=== PATIENT | male | born 1955 | race Caucasian/White ===

== ENCOUNTER 2018-01-02 02:53 | Emergency (ER) | payer OTHER ==
[~2018-01-02 02:53] MED LIST changes: -DABI150C3 PO; -FURO-45 PO
--- NOTE | 2018-01-02 02:59 | ER Report ---
History and Physical Time Seen By MD: 02:56 HPI/ROS CHIEF COMPLAINT: AICD discharge HISTORY OF PRESENT ILLNESS: 62-year-old male brought in by EMS from home after his defibrillator discharged [facility]. Patient's been sick for 2 weeks with flu symptoms. Patient's been seen previously for V. tach storm where his defibrillator went off. His many as 10 times within 2 hours. Patient was started on an amiodarone drip and [facility] Patient notes no prodromal symptoms such as palpitations, nausea, chest pain, shortness of breath prior to his defibrillator discharge. Patient is asymptomatic post discharge. REVIEW OF SYSTEMS: Respiratory: As above Cardiovascular: No chest pain, no palpitations. Gastrointestinal: No vomiting, no abdominal pain. Musculoskeletal: No back pain. Allergies: Coded Allergies: No Known Drug Allergies (Unverified , 12/05/14) Home Meds Reported Medications Dabigatran Etexilate Mesylate (PRADAXA) 150 Mg Capsule, 150 MG PO BID, CAPSULE 01/02/18 Furosemide (FUROSEMIDE) 20 Mg Tablet, 1 TAB PO DAILY, TAB 01/02/18 Aspirin (ASPIRIN) 81 Mg Tab.chew, 81 MG PO QDAY, TAB.CHEW 01/30/16 Valganciclovir Hcl (VALCYTE) 450 Mg Tablet, 450 MG PO BID 12/06/14 Spironolactone (ALDACTONE) 50 Mg Tablet, 25 MG PO QDAY 12/06/14 Nitroglycerin (NITROSTAT) 0.4 Mg Subl, 0.4 MG SL Q5MIN 12/06/14 Lansoprazole (LANSOPRAZOLE) 30 Mg Capsule.dr, 30 MG PO QDAY 12/06/14 Folic Acid (FOLIC ACID) 1 Mg Tablet, 1 MG PO BID, TAB 12/06/14 Fluoxetine Hcl (PROZAC) 40 Mg Capsule, 60 MG PO QDAY, CAPSULE 12/06/14 Carvedilol (COREG) 6.25 Mg Tablet, 28.125 MG PO BID, #10 TAB TAKE ONE TABLET BY MOUTH TWICE A DAY 12/06/14 Atorvastatin Calcium (ATORVASTATIN CALCIUM) 40 Mg Tablet, 2 TAB PO QDAY, TAB TAKE ONE TABLET BY MOUTH ONCE A DAY AT BED TIME 12/06/14 Alprazolam (ALPRAZOLAM) 0.5 Mg Tab.rapdis, 0.5 MG PO PRN, TAB 12/06/14 Discontinued Reported Medications Dofetilide (TIKOSYN) 500 Mcg Capsule, 500 MCG PO, CAPSULE 01/30/16 Furosemide (FUROSEMIDE) 40 Mg Tablet, 1 TAB PO DAILY, TAB 01/30/16 Warfarin Sodium (WARFARIN SODIUM) 5 Mg Tablet, 10 MG PO QDAY 12/06/14 Losartan Potassium (LOSARTAN POTASSIUM) 50 Mg Tablet, 25 MG PO QDAY 12/06/14 Digoxin (DIGOXIN) 0.25 Mg/5 Ml Solution, 0.25 MG PO DAILY 12/06/14 Reviewed Nurses Notes: Yes Old Medical Records Reviewed: Yes Hx Smoking: No Smoking Status: Former Smoker Hx Substance Use Disorder: No Constitutional Vital Sign - Last 24 Hours 01/02/18 01/02/18 01/02/18 01/02/18 02:55 03:00 03:07 03:15 Temp 98.0 Pulse 60 55 62 Resp 21 14 16 B/P (MAP) 123/68 128/74 (92) Pulse Ox 92 93 O2 Flow Rate 2.0 01/02/18 01/02/18 03:30 04:00 Pulse 61 60 Resp 21 14 B/P (MAP) 101/68 (79) 109/64 (79) Pulse Ox 93 90 O2 Delivery Room Air Physical Exam General Appearance: The patient is alert, has no immediate need for airway protection and no current signs of toxicity.. Vital signs stable, afebrile, pulse ox normal Eyes: Pupils equal and round no injection. Respiratory: Chest is non tender, lungs are clear to auscultation. No chest wall tenderness Cardiac: regular rate and rhythm, no murmur Gastrointestinal: Abdomen is soft and non tender, no masses, bowel sounds normal. Musculoskeletal: Neck: Neck is supple and non tender. Extremities have full range of motion and are non tender. Skin: No rashes or lesions. DIFFERENTIAL DIAGNOSIS: After history and physical exam differential diagnosis was considered for chest pain including but not limited to myocardial ischemia, pericarditis pulmonary embolus, chest wall pain, pleural inflammation and pulmonary infectious causes. Medical Decision Making Data Points Result Diagram: 01/02/1824401/02/18244 Laboratory Hematology Test 01/02/18 02:45 Red Blood Count 4.89 M/uL (4.00-5.60) Mean Corpuscular Volume 90.8 fL (80.0-96.0) Mean Corpuscular Hemoglobin 32.0 pg (26.0-33.0) Mean Corpuscular Hemoglobin Concent 35.3 g/dL (32.0-36.0) Red Cell Distribution Width 13.8 % (11.5-14.5) Mean Platelet Volume 6.9 fL (7.2-11.1) Neutrophils (%) (Auto) 59.0 % (39.4-72.5) Lymphocytes (%) (Auto) 31.6 % (17.6-49.6) Monocytes (%) (Auto) 4.7 % (4.1-12.4) Eosinophils (%) (Auto) 3.4 % (0.4-6.7) Basophils (%) (Auto) 1.3 % (0.3-1.4) Nucleated RBC Relative Count (auto) 0.0 /100WBC Neutrophils # (Auto) 5.6 K/uL (2.0-7.4) Lymphocytes # (Auto) 3.0 K/uL (1.3-3.6) Monocytes # (Auto) 0.4 K/uL (0.3-1.0) Eosinophils # (Auto) 0.3 K/uL (0.0-0.5) Basophils # (Auto) 0.1 K/uL (0.0-0.1) Nucleated RBC Absolute Count (auto) 0.00 K/uL Sodium Level 138 mmol/L (137-145) Potassium Level 3.8 mmol/L (3.5-5.0) Chloride Level 101 mmol/L (98-107) Carbon Dioxide Level 27 mmol/L (22-30) Blood Urea Nitrogen 20 mg/dl (9-21) Creatinine 1.20 mg/dl (0.66-1.25) Glomerular Filtration Rate Calc > 60.0 Random Glucose 113 mg/dl (75-110) Calcium Level 9.1 mg/dl (8.4-10.2) Magnesium Level 1.8 mg/dl (1.7-2.2) Total Bilirubin 0.9 mg/dl (0.2-1.3) Aspartate Amino Transf (AST/SGOT) 27 U/L (0-35) Alanine Aminotransferase (ALT/SGPT) 35 U/L (0-56) Alkaline Phosphatase 93 U/L (0-126) Troponin I < 0.012 ng/ml Total Protein 7.8 gm/dl (6.3-8.2) Albumin 4.0 g/dl (3.5-5.0) Digoxin Level < 0.4 ng/ml Digoxin Last Dose Date unk Digoxin Last Dose Time unk Chemistry Test 01/02/18 02:45 White Blood Count 9.5 k/uL (4.5-11.0) Red Blood Count 4.89 M/uL (4.00-5.60) Hemoglobin 15.7 g/dL (14.0-18.0) Hematocrit 44.4 % (42.0-52.0) Mean Corpuscular Volume 90.8 fL (80.0-96.0) Mean Corpuscular Hemoglobin 32.0 pg (26.0-33.0) Mean Corpuscular Hemoglobin Concent 35.3 g/dL (32.0-36.0) Red Cell Distribution Width 13.8 % (11.5-14.5) Platelet Count 275 K/uL (150-450) Mean Platelet Volume 6.9 fL (7.2-11.1) Neutrophils (%) (Auto) 59.0 % (39.4-72.5) Lymphocytes (%) (Auto) 31.6 % (17.6-49.6) Monocytes (%) (Auto) 4.7 % (4.1-12.4) Eosinophils (%) (Auto) 3.4 % (0.4-6.7) Basophils (%) (Auto) 1.3 % (0.3-1.4) Nucleated RBC Relative Count (auto) 0.0 /100WBC Neutrophils # (Auto) 5.6 K/uL (2.0-7.4) Lymphocytes # (Auto) 3.0 K/uL (1.3-3.6) Monocytes # (Auto) 0.4 K/uL (0.3-1.0) Eosinophils # (Auto) 0.3 K/uL (0.0-0.5) Basophils # (Auto) 0.1 K/uL (0.0-0.1) Nucleated RBC Absolute Count (auto) 0.00 K/uL Glomerular Filtration Rate Calc > 60.0 Calcium Level 9.1 mg/dl (8.4-10.2) Magnesium Level 1.8 mg/dl (1.7-2.2) Total Bilirubin 0.9 mg/dl (0.2-1.3) Aspartate Amino Transf (AST/SGOT) 27 U/L (0-35) Alanine Aminotransferase (ALT/SGPT) 35 U/L (0-56) Alkaline Phosphatase 93 U/L (0-126) Troponin I < 0.012 ng/ml Total Protein 7.8 gm/dl (6.3-8.2) Albumin 4.0 g/dl (3.5-5.0) Digoxin Level < 0.4 ng/ml Digoxin Last Dose Date unk Digoxin Last Dose Time unk Toxicology Test 01/02/18 02:45 Digoxin Level < 0.4 ng/ml Digoxin Last Dose Date unk Digoxin Last Dose Time unk EKG/Imaging EKG Interpretation 12 lead EK Rhythm: AV sequential pacemaker [place]: QRS: ST segments:, Comparison to previous EKG 11/25/16, no significant change. Pacemaker rhythm previously Imaging X-ray: Single view portable chest x-ray was obtained. I viewed the images myself on the PACS system. My interpretation of the images is: Atelectasis in the left lower base with elevated hemidiaphragm compared to previous film . The radiologist interpretation had no clinically significant variation from this interpretation. ED Course/Re-evaluation Clinical Indication for ER IV: IV Access ED Course Patient was admitted to an examination room. H&P was done. The differential diagnoses was considered. Patient with flu symptoms for 2 weeks. He's been in bed resting. Tonight he is brought in by EMS after his implanted defibrillator discharged. Patient notes no prodromal symptoms. He is noted fatigue and tiredness. He's not had no fever. He's had no productive cough. He's had no leg swelling. He is chronically on Pradaxa. Patient's EKG is a paced rhythm. Diagnostic laboratories show a normal white blood cell count without left shift. His [place]. Lites are unremarkable and normal troponin is noted. Patient's advised to follow-up with his primary care doctor if unimproved in 3- 5 days. I see no indication at this time for admission or further diagnostic evaluation. Decision to Disposition Date: Jan 02, 2018 Decision to Disposition Time: 03:46 Depart Departure Latest Vital Signs Vital Signs Date Time Temp Pulse Resp B/P (MAP) Pulse Ox O2 Delivery O2 Flow Rate FiO2 01/02/18 04:00 60 14 109/64 (79) 90 Room Air 01/02/18 03:07 2.0 01/02/18 02:55 98.0 Impression: Primary Impression: AICD discharge Additional Impressions: Flu-like symptoms Dry cough Condition: Improved Disposition: HOME OR SELF-CARE Patient Instructions: Implantable Cardioverter Defibrillator (GEN), Upper Respiratory Infection (ED) Additional Instructions: Follow-up with your primary care if unimproved in one week Return to the ER for any worsening Problem Qualifiers RALPH MILLAN DO Jan 02, 2018 02:59
[2018-01-02] MEDS ORDERED: DABI150C3 PO (03:14)
[2018-01-02] MEDS ORDERED: FURO-45 PO (03:14)
[2018-01-02 03:16] LABS: PLATELET COUNT, AUTOMATED 275 K/uL (150-450)
--- NOTE | 2018-01-02 03:36 | EKG ---
FACILITY: [facility] PATIENT NAME: FARHAN TUCKER : [id number] MR: [id number] V: [id number] EXAM DATE: ORDERING PHYSICIAN: RALPH MILLAN TECHNOLOGIST: ADAN Wilson Reason : CARDIAC Blood Pressure : / mmHG Vent. Rate : 064 BPM Atrial Rate : 064 BPM P-R Int : 112 ms QRS Dur : 104 ms QT Int : 488 ms P-R-T Axes : 041 066 209 degrees QTc Int : 503 ms AV sequential or dual chamber electronic pacemaker When compared with ECG of 25-NOV-2016 20:13, Vent. rate has decreased BY 11 BPM Confirmed by RAJWINDER JOHN ([id number]) on 01/03/2018 2:16:18 PM Referred By: Confirmed By:RAJWINDER JOHN
--- NOTE | 2018-01-02 03:37 | RADIOLOGY IMAGING REPORT ---
FACILITY: [facility] - [place] PATIENT NAME: Fausto Li : 1955 MR: [id number] V: [id number] EXAM DATE: ORDERING PHYSICIAN: RALPH MILLAN TECHNOLOGIST: [place] [facility] [place] Fausto Li : 1955 Visit/Account:[id number] Date of Sevice: 01/02/2018 CHEST SINGLE AP 01/02/2018 03:02 hours. HISTORY: Chest pain. Defibrillator shock. COMPARISON: 11/25/2016 and studies dating to 12/05/2014. TECHNIQUE: Portable AP view of the chest. FINDINGS: Tubes/lines/hardware: ICD generator projects at the left lateral chest and leads terminate in the rig ht atrium, the right ventricle, and the coronary sinus. There are external chest leads. There are a p late and screws from anterior cervical fusion. Pulmonary: There is new elevation of the left hemidiaphragm and there is adjacent atelectasis. Right lung is clear. There is no pneumothorax or pleural effusion. Cardiomediastinal: Cardiac and mediastinal silhouettes are within normal limits. Bones/soft tissues: No acute osseous abnormality. The visible abdomen is normal. IMPRESSION: 1. New left hemidiaphragm elevation and adjacent atelectasis. Report Dictated By: Flores Ziegler at 01/02/2018 3:29 AM Report E-Signed By: Flores Ziegler at 01/02/2018 3:32 AM WSN:[id number]
[2018-01-02 04:00] VITALS: BP 109/64
== END 2018-01-02 04:07 | disposition home or self-care (01) ==
LOC: ER 02:54
DX: T82.9XXA Unspecified complication of cardiac and vascular prosthetic device, implant and graft, initial encounter (principal); R53.83 Other fatigue; R05 Cough
CPT/HCPCS: 71045; 80162; 82040; 82247; 82310; 82374; 82435; 82565; 82947; 83735; 84075; 84132; 84155; 84295; 84450; 84460; 84484; 84520; 85025; 93005; 99284

== ENCOUNTER → 2018-01-02 | Outpatient (CLI) | payer OTHER ==
[~2018-01-02] MED LIST: ALPR-460 PO; ASPI81TA94 PO; ATOR40TA69 PO; CARV6.2574 PO; CEPH-13 PO; CLOP75TA43 PO; CODE118S5 PO; DABI150C3 PO; DIGO0.25 PO; DOFE500C3 PO; EZET10TA41 PO; FENO48TA PO; FLUO40CA76 PO; FOLI-68 PO; FURO-45 PO; FURO-47 PO; LANS30CA63 PO; LOSA50TA72 PO; NIT4 SL; SPIR50TA30 PO; TAMS0.4C70 PO; VALG450T4 PO; WARF5TAB23 PO
== END ==
LOC: AMB 02:26
PROVIDERS: ATTEND Nurse Practitioner
DX: T82.118A Breakdown (mechanical) of other cardiac electronic device, initial encounter (principal)
CPT/HCPCS: A0425; A0427

== ENCOUNTER 2018-07-01 19:58 | Emergency (ER) | payer OTHER ==
[~2018-07-01 19:58] MED LIST changes: +DABI150C3 PO; +FURO-45 PO; -LOSA50TA72 PO; +LOSA50TA74 PO
--- NOTE | 2018-07-01 20:06 | ER Report ---
History and Physical Time Seen By MD: 20:01 HPI/ROS CHIEF COMPLAINT: Left toe HISTORY OF PRESENT ILLNESS: 63-year-old male presents ambulatory to the ER after dropping an ax from the rack on his truck onto his left toe. He sustained approximately 1.5 cm laceration on the top of his foot proximal to the nail and distal DIP joint. Patient's last tetanus shots greater than 10 years. Patient shows good range of motion of the toe. Not appear to be any joint penetration or nail injury. Allergies: Coded Allergies: No Known Drug Allergies (Unverified , 07/02/18) Home Meds Reported Medications Losartan Potassium (LOSARTAN POTASSIUM) 25 Mg Tablet, 25 MG PO QDAY 07/01/18 Dabigatran Etexilate Mesylate (PRADAXA) 150 Mg Capsule, 150 MG PO BID, CAPSULE 01/02/18 Furosemide (FUROSEMIDE) 20 Mg Tablet, 1 TAB PO DAILY, TAB 01/02/18 Aspirin (ASPIRIN) 81 Mg Tab.chew, 81 MG PO QDAY, TAB.CHEW 01/30/16 Valganciclovir Hcl (VALCYTE) 450 Mg Tablet, 450 MG PO BID 12/06/14 Spironolactone (ALDACTONE) 50 Mg Tablet, 25 MG PO QDAY 12/06/14 Nitroglycerin (NITROSTAT) 0.4 Mg Subl, 0.4 MG SL Q5MIN 12/06/14 Lansoprazole (LANSOPRAZOLE) 30 Mg Capsule.dr, 30 MG PO QDAY 12/06/14 Folic Acid (FOLIC ACID) 1 Mg Tablet, 1 MG PO BID, TAB 12/06/14 Carvedilol (COREG) 6.25 Mg Tablet, 28.125 MG PO BID, #10 TAB TAKE ONE TABLET BY MOUTH TWICE A DAY 12/06/14 Atorvastatin Calcium (ATORVASTATIN CALCIUM) 40 Mg Tablet, 2 TAB PO QDAY, TAB TAKE ONE TABLET BY MOUTH ONCE A DAY AT BED TIME 12/06/14 Alprazolam (ALPRAZOLAM) 0.5 Mg Tab.rapdis, 0.5 MG PO PRN, TAB 12/06/14 Discontinued Reported Medications Fluoxetine Hcl (PROZAC) 40 Mg Capsule, 60 MG PO QDAY, CAPSULE 12/06/14 Reviewed Nurses Notes: Yes Old Medical Records Reviewed: Yes Hx Smoking: No Smoking Status: Former Smoker Hx Substance Use Disorder: No Constitutional Vital Sign - Last 24 Hours 07/01/18 07/01/18 07/01/18 07/01/18 20:01 20:02 20:15 20:30 Temp 97.7 Pulse 64 Resp 15 B/P (MAP) 146/76 (99) 146/76 107/52 (70) 103/61 (75) Pulse Ox 93 O2 Delivery Room Air 07/01/18 07/01/18 07/01/18 07/01/18 20:45 21:00 21:15 21:28 Pulse 62 B/P (MAP) 111/67 (82) 124/114 (117) 129/75 (93) Pulse Ox 92 07/01/18 21:30 B/P (MAP) 133/75 (94) Physical Exam General appearance: Alert no distress. Respiratory: Chest is non tender, lungs are clear to auscultation. Cardiac: Regular rate and rhythm Extremities: Examination of the left foot reveals a transverse superficial 1.5 cm toe laceration proximal to the DIP joint. DIFFERENTIAL DIAGNOSIS: After history and physical exam differential diagnosis was considered for laceration, tendon laceration, joint penetration, crush injury, toe fracture, contusion Medical Decision Making ED Course/Re-evaluation ED Course Patient was admitted to an examination room. H&P was done. The differential diagnosis was considered. On clinical examination. Patient has good range of motion of his toe. There is some facial laceration on the top surface. Does not penetrate the joint. All tendon function appears to be intact. Diagnostic x-rays were performed of the toe. There is no obvious fracture. Radiologist called and was suspicious of a linear lucency noted on the x-rays. On palpation and manipulation of the toe. There is no tenderness to suggest a fracture. Procedure: Laceration repair. Verbal consent was obtained from the patient. The 1.5 cm laceration on the proximal great toe was anesthetized in the usual fashion. The wound was scrubbed, draped and explored to its base with a gloved finger. There were no deep structures involved. No tendon injury was identified. The wound was repaired with Dermabond. The wound repair was simple. The procedure was performed by myself. Decision to Disposition Date: Jul 01, 2018 Decision to Disposition Time: 21:05 Depart Departure Latest Vital Signs Vital Signs Date Time Temp Pulse Resp B/P (MAP) Pulse Ox O2 Delivery O2 Flow Rate FiO2 07/01/18 21:30 133/75 (94) 07/01/18 21:28 62 92 07/01/18 20:02 97.7 15 Room Air Impression: Primary Impression: Contusion of great toe, right Additional Impression: Toe laceration Condition: Improved Disposition: HOME OR SELF-CARE Patient Instructions: Contusion in Adults (ED), Skin Adhesive Care (ED) Additional Instructions: Watch for signs of infection Take ibuprofen as needed for pain relief The skin adhesive will follow off on its own in 7-10 days. Problem Qualifiers Primary Impression: Contusion of great toe, right Encounter type: initial encounter Damage to nail status: without damage Qualified Codes: S90.111A - Contusion of right great toe without damage to nail, initial encounter Additional Impression: Toe laceration Encounter type: initial encounter Toe: great toe Damage to nail status: without damage Foreign body presence: without foreign body Laterality: right Qualified Codes: S91.111A - Laceration without foreign body of right great toe without damage to nail, initial encounter RALPH MILLAN DO Jul 01, 2018 20:06
[2018-07-01] MEDS ORDERED: DIPHTH/TETANUS/ACEL. PERTUSSIS IM ONLY ONE (20:10)
--- NOTE | 2018-07-01 21:20 | RADIOLOGY IMAGING REPORT ---
FACILITY: [facility] - [place] PATIENT NAME: Fausto Li : 1955 MR: [id number] V: [id number] EXAM DATE: ORDERING PHYSICIAN: RALPH MILLAN TECHNOLOGIST: Location: Patient: Fausto Li : 1955 Visit/Account:[id number] Date of Sevice: 07/01/2018 TOE RIGHT FOOT GREAT TOE Injury to great toe. Four view examination great toe. There is a vague ill-defined lucency projecting through the proximal aspect of the distal phalanx gre at toe on the AP film and the oblique film without any obvious cortical offset. On the lateral film, however, there is a lucency extending throughout the entire length of the proximal phalanx appearing to represent a vertically oriented fracture with approximately 1.7 mm of cortical offset. On the se cond oblique view this appears to be less pronounced and only involves the dorsal aspect which is pe rceived as a possible well-corticated bony ossicle IMPRESSION: 1. Apparent vertically oriented fracture through the proximal aspect of the distal phalanx of great toe best only seen on one true lateral. No abnormality is seen on the AP or oblique view. Recommen d clinical correlation and additional imaging/follow-up as indicated. Results were discussed with RALPH MILLAN at 07/01/2018 9:15 PM. Report Dictated By: Brent Arroyo MD at 07/01/2018 8:59 PM Report E-Signed By: Brent Arroyo MD at 07/01/2018 9:17 PM WSN:[id number]
[2018-07-01 21:30] VITALS: BP 133/75
[2018-07-01] MEDS ORDERED: LOSA25TA52 PO (22:20)
== END 2018-07-01 21:39 | disposition home or self-care (01) ==
LOC: ER 20:16
DX: S90.111A Contusion of right great toe without damage to nail, initial encounter (principal); S91.111A Laceration without foreign body of right great toe without damage to nail, initial encounter
CPT/HCPCS: 90471; 90715; 99283

== ENCOUNTER 2018-07-02 16:46 | Emergency (ER) | payer OTHER ==
[~2018-07-02 16:46] MED LIST changes: +LOSA25TA52 PO
--- NOTE | 2018-07-02 16:59 | ER Report ---
History and Physical Time Seen By MD: 16:59 Hx. of Stated Complaint: BLEEDING BIG TOE HPI/ROS CHIEF COMPLAINT: Left 1st toe bleeding HISTORY OF PRESENT ILLNESS: Patient is a 63-year-old male here with complaints of left 1st digit toe pain seen here yesterday for an injury by an ax laceration. Patient reportedly had Dermabond applied to the site but had continued bleeding in the setting of Pradaxa. Patient reports that the bleeding continued from underneath the Dermabond prompting evaluation. Patient reports throbbing pain at the site. Denies weakness, nausea, vomiting, near syncopal episodes, paleness. REVIEW OF SYSTEMS: Constitutional: No fever, no chills. Musculoskeletal: + left toe pain, throbbing and minor bleeding Skin: Mild bleeding from 1st toe laceration s/p dermabond repair Neurological: No focal neuro deficits Allergies: Coded Allergies: No Known Drug Allergies (Unverified , 07/02/18) Home Meds Reported Medications Losartan Potassium (LOSARTAN POTASSIUM) 25 Mg Tablet, 25 MG PO QDAY 07/01/18 Dabigatran Etexilate Mesylate (PRADAXA) 150 Mg Capsule, 150 MG PO BID, CAPSULE 01/02/18 Furosemide (FUROSEMIDE) 20 Mg Tablet, 1 TAB PO DAILY, TAB 01/02/18 Aspirin (ASPIRIN) 81 Mg Tab.chew, 81 MG PO QDAY, TAB.CHEW 01/30/16 Valganciclovir Hcl (VALCYTE) 450 Mg Tablet, 450 MG PO BID 12/06/14 Spironolactone (ALDACTONE) 50 Mg Tablet, 25 MG PO QDAY 12/06/14 Nitroglycerin (NITROSTAT) 0.4 Mg Subl, 0.4 MG SL Q5MIN 12/06/14 Lansoprazole (LANSOPRAZOLE) 30 Mg Capsule.dr, 30 MG PO QDAY 12/06/14 Folic Acid (FOLIC ACID) 1 Mg Tablet, 1 MG PO BID, TAB 12/06/14 Carvedilol (COREG) 6.25 Mg Tablet, 28.125 MG PO BID, #10 TAB TAKE ONE TABLET BY MOUTH TWICE A DAY 12/06/14 Atorvastatin Calcium (ATORVASTATIN CALCIUM) 40 Mg Tablet, 2 TAB PO QDAY, TAB TAKE ONE TABLET BY MOUTH ONCE A DAY AT BED TIME 12/06/14 Alprazolam (ALPRAZOLAM) 0.5 Mg Tab.rapdis, 0.5 MG PO PRN, TAB 12/06/14 Discontinued Reported Medications Fluoxetine Hcl (PROZAC) 40 Mg Capsule, 60 MG PO QDAY, CAPSULE 12/06/14 Hx Smoking: No Smoking Status: Former Smoker Hx Substance Use Disorder: No Constitutional Physical Exam General Appearance: The patient is alert, has no immediate need for airway protection and no signs of toxicity. NAD Neurological: No focal deficits Skin: + minor bleeding from base of 1st toe Musculoskeletal: + tenderness on palpation of first toe at wound site DIFFERENTIAL DIAGNOSIS: After history and physical exam differential diagnosis was considered for laceration, rebleed, healing wound Medical Decision Making ED Course/Re-evaluation ED Course Patient is a 63-year-old male returning to the emergency department after the patient that caused a laceration of his 1st toe after striking his foot accidentally with an ax the night before. Patient is on a blood thinning agent and the wound was repaired previously with Dermabond but the patient reports bleeding from the repair site prompting reevaluation. Since there is a film of Dermabond over the wound site, the site was initially dressed with a soaked gauze with tranexamic acid saturating the site. I then dressed the site with gelfoam and dressed overtop with a semicompressive dressing. Hemostasis was achieved and patient was advised to follow-up with his family doctor. Decision to Disposition Date: Jul 02, 2018 Decision to Disposition Time: 17:50 Depart Departure Latest Vital Signs Impression: Primary Impression: Toe laceration Condition: Improved Disposition: HOME OR SELF-CARE Patient Instructions: Laceration (ED) Additional Instructions: Please leave the pressure dressing in place for the next 2 days. Please do not remove the clotting material until fully healed. Please return promptly if you continue to bleed KRUPA MONTES DE OCA DO Jul 02, 2018 16:59
[2018-07-02] MEDS ORDERED: TRANEXAMIC AC 1000 MG/10ML SDV ONE (17:10)
[2018-07-02 17:30] VITALS: BP 99/64
[2018-07-02] MEDS ORDERED: traMADol 50 MG TAB TH 2 TAB/BOTTLE PO ONE (17:45)
== END 2018-07-02 18:03 | disposition home or self-care (01) ==
LOC: ER 17:01
DX: S91.112A Laceration without foreign body of left great toe without damage to nail, initial encounter (principal)
CPT/HCPCS: 99283; C9399